=== PATIENT | female | born 1970 | race Caucasian/White ===

== ENCOUNTER 2021-10-10 17:47 | Emergency (ER) | payer BC ==
[~2021-10-10] VITALS: Ht 172.7 cm; Wt 68.2 kg
[2021-10-10 17:57] VITALS: TEMP 97.8
[2021-10-10] MEDS ORDERED: ZANAFLEX CAPSULE4 MG PO ×2 (19:54)
[2021-10-10] MEDS ORDERED: ULTRAM 50MG TAB50 MG PO ×2 (19:54)
[2021-10-10 20:13] VITALS: BP 152/80; PULSE 75
[2021-10-11] MEDS ORDERED: ZANAFLEX CAPSULE4 MG PO (12:22)
[2021-10-11] MEDS ORDERED: ULTRAM 50MG TAB50 MG PO (12:22)
== END 2021-10-10 20:13 | disposition home or self-care (01) ==
LOC: COL.ER 17:47
DX: M25.512 Pain in left shoulder (principal); Z28.310 Unvaccinated for COVID-19
CPT/HCPCS: J1885; J3360